=== PATIENT | female | born 1980 | race Caucasian/White ===

== ENCOUNTER 2016-04-12 16:10 | Emergency (ER) | payer OTHER ==
[~2016-04-12] VITALS: Ht 170.2 cm; Wt 68.6 kg
[~2016-04-12 16:10] MED LIST: BUSPAR10 MG PO; COGENTIN2 MG PO; DOXEPIN HCL100 MG PO; FLEXERIL10 MG PO; GABAPENTIN300 MG PO; HALDOL2 MG PO; HALDOL5 MG PO; HYDROXYZINE HCL50 MG PO; LAMICTAL (ORAN1 EACH PO; LAMICTAL200 MG PO; LEXAPRO20 MG PO; MOTRIN400 MG PO; NAPROSYN500 MG PO; NEURONTIN600 MG PO; QUETIAPINE FUM100 MG PO; QUETIAPINE FUMA50 MG PO; SEROQUEL400 MG PO; TRAZODONE HCL100 MG PO
[2016-04-12 16:49] LABS: EOSINOPHIL (%) 0.1 % (0-5); HEMATOCRIT 42.1 % (36.0-46.0); IMMATURE GRANULOCYTE (%) 0.1 % (0.0-0.7); IMMATURE GRANULOCYTE COUNT 0.1 K/uL; LYMPHOCYTE COUNT 1.6 K/uL (1.0-2.8); MCH 31.8 PG (29.0-34.0); MCV 93.8 FL (83-99); MEAN PLAT.VOLUME 9.8 uM^3 (9.5-12.4); MONOCYTE (%) 7.7 % (3-12); MONOCYTE COUNT 0.6 K/uL (0-0.8); NEUTROPHIL (%) 72.6 % (45-76); NEUTROPHIL COUNT 5.9 K/uL (1.8-6.4); PLATELET COUNT 227 K/uL (156-360); RBC DIS.WIDTH-CV 14.2 % (11.8-14.6); RBC DIS.WIDTH-SD 46.6 % (39-53); RED BLOOD COUNT 4.49 M/uL (3.80-5.20); WHITE BLOOD COUNT 8.1 K/uL (4.1-10.2)
[2016-04-12 16:58] LABS: CHLORIDE 108 mEq/L (99-109); POTASSIUM 3.8 mEq/L (3.7-5.4); SODIUM 142 mEq/L (136-147)
[2016-04-12 17:00] LABS: GLUCOSE 106 mg/dL (70-99)
[2016-04-12 17:01] LABS: ANION GAP 9 MEQ/L (2-14)
[2016-04-12 17:02] LABS: TOTAL BILIRUBIN 0.4 mg/dL (0.0-1.0)
[2016-04-12 17:03] LABS: SERUM ETHYL ALCOHOL < 10 mg/dL
[2016-04-12 17:04] LABS: ALKALINE PHOSPHATASE 81 IU/L (3-129); GFR ESTIMATE (CALCULATED) > 59 mL/min/
[2016-04-12 17:06] LABS: UREA NITROGEN (BUN) 16 mg/dL (9-23)
[2016-04-12 17:07] LABS: SALICYLATE < 5.0 MG/DL (15-30)
[2016-04-12 17:16] LABS: QUANTITATIVE HCG < 4.0 MIU/ML
[2016-04-12 18:00] VITALS: BP 137/92
== END 2016-04-12 18:00 ==
LOC: EME 16:10
PROVIDERS: Emergency Medicine
DX: F41.1 Generalized anxiety disorder (principal); R45.851 Suicidal ideations; F33.1 Major depressive disorder, recurrent, moderate; F17.200 Nicotine dependence, unspecified, uncomplicated
CPT/HCPCS: 80053; 81003; 84702; 85025; 90837; 99281; 99284; G0480